=== PATIENT | male | born 1990 | race Hispanic/Latino ===

== ENCOUNTER 2018-08-23 11:08 | Emergency (ER) | payer OTHER ==
[2018-08-23 11:08] VITALS: BMI 25.0
[2018-08-23 11:16] VITALS: TEMP 99.3
[2018-08-23] MEDS ORDERED: Lidocaine 5% Patch TD STA (11:35)
--- NOTE | 2018-08-23 11:39 | ED PDOC ---
Arrival/HPI - General Chief Complaint: Back Pain Time Seen by Provider: 08/23/18 11:32 Historian: Patient - History of Present Illness Narrative History of Present Illness (Text): 08/23/18 11:33 Patient is a 27 year old male who presents to the Emergency Department complaining of right sided lower back pain that started 2 days ago. Patient reports that 2 days ago while standing he felt a "pop and subsequently dropped to the floor from the pain. The following day he was able to walk a little, and felt well enough today to come to the hospital. Patient reports that the pain radiates from the right lower back to the groin. He has tried Motrin, Icy-Hot, and lidocaine for pain relief. Of note he has taken a muscle relaxer approximately 1-2 hours ago. Patient denies any recent trauma or history of cancer. Patient also denies any saddle anesthesia, weakness, numbness, bowel/urinary incontinence, or any other complaints. Time/Duration: < week Symptom Onset: Sudden Symptom Course: Unchanged Activities at Onset: Light Context: Standing, Home Past Medical History - Provider Review Nursing Documentation Reviewed: Yes - Tetanus Immunization Tetanus Immunization: Unknown - Past Medical History Past Medical History: Non-Contributing - Cardiac Hx Cardiac Disorders: No - Pulmonary Hx Respiratory Disorders: No - Neurological Hx Neurological Disorder: No - HEENT Hx HEENT Disorder: No - Renal Hx Renal Disorder: No - Endocrine/Metabolic Hx Endocrine Disorders: No - Hematological/Oncological Hx Blood Disorders: No - Integumentary Hx Dermatological Disorder: No - Musculoskeletal/Rheumatological Other/Comment: history of sports related left ankle - Gastrointestinal Hx Gastrointestinal Disorders: No - Genitourinary/Gynecological Hx Genitourinary Disorders: No - Psychiatric Hx Psychophysiologic Disorder: No Hx Substance Use: No - Past Surgical History Past Surgical History: No Previous - Surgical History Hx Appendectomy: Yes - Anesthesia Hx Anesthesia: Yes - Suicidal Assessment Feels Threatened In Home Enviroment: No Family/Social History - Physician Review Nursing Documentation Reviewed: Yes Family/Social History: No Known Family HX Smoking Status: Never Smoked Hx Alcohol Use: No Hx Substance Use: No Allergies/Home Meds Allergies/Adverse Reactions: Allergies No Known Allergies Allergy (Verified 05/29/15 14:57) Review of Systems - Physician Review All systems were reviewed & negative as marked: Yes - Review of Systems Gastrointestinal: absent: Constipation, Diarrhea Genitourinary Male: absent: Dysuria, Urinary Output Changes Musculoskeletal: Back Pain Neurological: Other (saddle anesthesia, numbness, weakness) Physical Exam Vital Signs Reviewed: Yes Vital Signs Temp Pulse BP Pulse Ox 08/23/18 11:12 99.3 F 95 H 153/95 H 98 Temperature: Afebrile Blood Pressure: Hypertensive Pulse: Regular Respiratory Rate: Normal Appearance: Positive for: Well-Appearing Mental Status: Positive for: Alert and Oriented X 3 - Systems Exam Head: Present: Atraumatic ( ), Normocephalic Pupils: Present: PERRL Extroacular Muscles: Present: EOMI Conjunctiva: Present: Normal Mouth: Present: Moist Mucous Membranes Neck: Present: Normal Range of Motion Respiratory/Chest: Present: Clear to Auscultation, Good Air Exchange. No: Respiratory Distress, Accessory Muscle Use Cardiovascular: Present: Regular Rate and Rhythm, Normal S1, S2. No: Murmurs Abdomen: No: Tenderness, Distention, Peritoneal Signs Back: Present: Pain with Leg Raise. No: Paraspinal Tenderness Upper Extremity: Present: Normal Inspection. No: Cyanosis, Edema Lower Extremity: Present: Other (Diminished flexion of right hip secondary to pain.). No: Edema Neurological: Present: GCS=15, CN II-XII Intact, Speech Normal Skin: Present: Warm, Dry, Normal Color Psychiatric: Present: Alert, Oriented x 3, Normal Insight, Normal Concentration Medical Decision Making ED Course and Treatment: 08/23/18 11:33 Impression: 27 year old male complaining of ongoing right sided lower back pain for the past 2 days. Differential Diagnosis included but are not limited to: Plan: -- Back X-ray -- Tylenol -- Decadron -- Toradol -- Lidoderm -- Reassess and disposition Prior Visits: Notes and results from previous visits were reviewed. Progress Notes: 08/23/18 12:40 re-eval, patient reports no sig alleviation in pain, patient states he does not want to proceed with ketamine infusion as he has to get home to take care of his daughter. patient states he does not drive and will take an uber home. patient understands that he will not be getting a medication such a percocet as i explained to him that a medication like that is not the most effective to control his pain. - RAD Interpretation Narrative RAD Interpretations (Text): 08/23/18 12:30 Lumbar X-ray: Dictator : Alcides Larry MD FINDINGS: BONES: Normal alignment. No listhesis. No fracture. DISC SPACES: Unremarkable. OTHER FINDINGS: None. IMPRESSION: Unremarkable radiographs of the lumbar spine. Radiology Orders: 08/23/18 11:33 LS SPINE WITH OBL > 18 YRS OLD [RAD] Stat English Drawer: Radiologist - Medication Orders Current Medication Orders: Discontinued Medications Acetaminophen (Tylenol 325mg Tab) 975 mg PO STAT STA Stop: 08/23/18 11:35 Last Admin: 08/23/18 11:52 Dose: 975 mg MAR Pain/Vitals Document 08/23/18 11:52 HI (Rec: 08/23/18 11:52 HI [id number]) Pain Reassessment Is This A Pain ReAssessment? No Re-Assess: MAR Pain/Vitals Document 08/23/18 12:52 HI (Rec: 08/23/18 12:55 HI [id number]) Pain Reassessment Is This A Pain ReAssessment? Yes Sleep Is patient sleeping during reassessment? No Presence of Pain Presence of Pain Yes Dexamethasone (Decadron Inj) 10 mg IM STAT STA Stop: 08/23/18 11:35 Last Admin: 08/23/18 11:52 Dose: 10 mg IM Administration Charges Document 08/23/18 11:52 HI (Rec: 08/23/18 11:52 HI [id number]) Injection Site MAR Injection Site Left Deltoid Charges for Administration # of IM Administrations 1 Ketorolac Tromethamine (Toradol) 60 mg IM STAT STA Stop: 08/23/18 11:35 Last Admin: 08/23/18 11:52 Dose: 60 mg MAR Pain Assessment Document 08/23/18 11:52 HI (Rec: 08/23/18 11:52 [id number] Pain Reassessment Is this a pain reassessment? No IM Administration Charges Document 08/23/18 11:52 HI (Rec: 08/23/18 11:52 HI [id number]) Charges for Administration # of IM Administrations 1 Re-Assess: MAR Pain Assessment Document 08/23/18 12:52 HI (Rec: 08/23/18 12:55 HI [id number]) Pain Reassessment Is this a pain reassessment? Yes Sleep Is patient sleeping during reassessment? No Presence of Pain Presence of Pain Yes Lidocaine (Lidoderm) 1 ea TD DAILY STA Stop: 08/23/18 11:36 Last Admin: 08/23/18 11:52 Dose: 1 ea MAR Transdermal Patch Site Document 08/23/18 11:52 HI (Rec: 08/23/18 11:[id number] Transdermal Patch Site Transdermal Patch Site Right Lower Back Oxycodone HCl (Oxycodone Immediate Release Tab) 5 mg PO STAT STA Stop: 08/23/18 12:40 Last Admin: 08/23/18 12:54 Dose: 5 mg MAR Pain Assessment Document 08/23/18 12:54 HI (Rec: 08/23/18 12:55 HI [id number]) Pain Reassessment Is this a pain reassessment? Yes Location Left, Right or Bilateral Right Upper or Lower Lower Pain Location Body Site Back Description Description Constant Intensity of Pain at present 8 Acceptable Level of Pain 0 Pain Behavior Moaning Facial Grimacing Aggravating Factors Changing Position - Scribe Statement The provider has reviewed the documentation as recorded by the Scribterry Rader Provider Scribe Attestation: All medical record entries made by the Scribe were at my direction and personally dictated by me. I have reviewed the chart and agree that the record accurately reflects my personal performance of the history, physical exam, medical decision making, and the department course for this patient. I have also personally directed, reviewed, and agree with the discharge instructions and disposition. Disposition/Present on Arrival - Present on Arrival Any Indicators Present on Arrival: No History of DVT/PE: No History of Uncontrolled Diabetes: No Urinary Catheter: No History of Decub. Ulcer: No History Surgical Site Infection Following: Orthopedic Procedures - Disposition Have Diagnosis and Disposition been Completed?: Yes Diagnosis: Radiculopathy of lumbosacral region, Elevated blood-pressure reading without diagnosis of hypertension Disposition: HOME/ ROUTINE Disposition Time: 12:54 Patient Plan: Discharge, Transfer To Patient Problems: Current Active Problems Problem Status Onset Radiculopathy of lumbosacral region Acute Elevated blood-pressure reading without diagnosis of hypertension Acute Condition: STABLE Discharge Instructions (ExitCare): High Blood Pressure in Adults, Radiculopathy (DC) Additional Instructions: You must follow up with a primary care doctor for further evaluation of the low back pain which may include an MRI of your low back. Return for any new or worsening symptoms especially numbness in your groin area, weakness or numbness of the legs. SHONNA REYES, thank you for letting us take care of you today. Your provider was Noah Camacho MD and you were treated for radicular low back pain. The emergency medical care you received today was directed at your acute symptoms. If you were prescribed any medication, please fill it and take as directed. It may take several days for your symptoms to resolve. Return to the Emergency Department if your symptoms worsen, do not improve, or if you have any other problems. Please contact your doctor or call one of the physicians/clinics you have been referred to that are listed on the Patient Visit Information form that is included in your discharge packet. Bring any paperwork you were given at discharge with you along with any medications you are taking to your follow up visit. Our treatment cannot replace ongoing medical care by a primary care provider outside of the emergency department. Thank you for allowing the [facility] team to be part of your care today. If you had an X-Ray or CT scan: A Radiologist will review the ED reading if any change in treatment is needed we will contact you. If you had a blood, urine, or wound culture: It will take several days for the results, if any change in treatment is needed we will contact you. If you had an STI test: It will take 48 hours for the results. Please call after 1 week if you have not heard back. Prescriptions: Cyclobenzaprine [Flexeril] 5 mg PO TID #15 tab Ketorolac Tromethamine [Toradol] 10 mg PO Q6H 5 Days #20 tab Lidocaine 5% [Lidoderm] 1 ea TD Q12H #14 patch Sennosides/Docusate Sodium [Colace 2-in-1 Tablet] 2 each PO BID 7 Days #14 tablet Referrals: [facility] [Outside] - Follow up with primary Fanny Henderson MD [Medical Doctor] - Follow up with primary Forms: [employer] (H[place]er), WORK NOTE
--- NOTE | 2018-08-23 12:25 | RAD ---
Date of service: 08/23/2018 PROCEDURE: Radiographs of the Lumbar Spine. HISTORY: right lumbosacral radicular pain COMPARISON: No prior. FINDINGS: BONES: Normal alignment. No listhesis. No fracture. DISC SPACES: Unremarkable. OTHER FINDINGS: None. IMPRESSION: Unremarkable radiographs of the lumbar spine.
[2018-08-23] MEDS ORDERED: oxyCODONE 5 mg Immediate Release Tab PO STA (12:39)
[2018-08-23 13:12] VITALS: BP 143/77; PULSE 85; RESP 18; O2SAT 100
== END 2018-08-23 13:15 | disposition home or self-care (01) ==
LOC: ED 11:08
DX: R03.0 Elevated blood-pressure reading, without diagnosis of hypertension (principal); M54.17 Radiculopathy, lumbosacral region
CPT/HCPCS: 72110; 96372; 99282; J1100; J1885